=== PATIENT | female | born 1955 | race African-American/Black ===

== ENCOUNTER 2023-07-21 17:49 | Emergency (ER) | payer MEDICARE, OTHER ==
[~2023-07-21] VITALS: Ht 170.2 cm; Wt 91.0 kg
[~2023-07-21 17:49] MED LIST: CYM20; QUET100T
[2023-07-21 17:56] VITALS: PULSE 107
[2023-07-21 17:58] VITALS: BP 125/67; RESP 18; TEMP 98.5; O2SAT 97
[2023-07-21] MEDS ORDERED: ALBU18HF2 IH (20:27)
== END 2023-07-21 20:27 | disposition home or self-care (01) ==
LOC: ER 17:49
DX: J20.9 Acute bronchitis, unspecified (principal); Z72.0 Tobacco use
CPT/HCPCS: 71045; 93005; 93970; 99284